=== PATIENT | female | born 1980 | race African-American/Black ===

== ENCOUNTER 2017-09-21 20:37 | Emergency (ER) | payer SELFPAY ==
[2017-09-21 20:58] VITALS: BP 139/76; PULSE 85; RESP 18; TEMP 98.2; O2SAT 99
[2017-09-21] MEDS ORDERED: SODIUM CHLORIDE 0.9% FLUSH 10 ML FLUSH IVF PRN (21:45)
--- NOTE | 2017-09-21 21:53 | PD ---
HPI Chief Complaint: Cold / Flu Symptoms Time Seen by Provider: 21:39 Travel History International Travel<30 days: No Contact w/Intl Traveler<30days: No Traveled to known affect area: No History of Present Illness HPI Patient is a 37-year-old female presenting to emerge department for evaluation of cold and flulike symptoms. Patient states she has been having a dry cough, subjective fevers and chills, generalized body aches for the last 2-3 days. Patient reports that she is HIV positive and has not been on any antivirals in several years. She recently moved here from [place] and thought it could be allergies. She denies any chest pain, abdominal pain, nausea, vomiting, headache. She did report that she felt dizzy earlier today. She also reports a medical history significant for asthma, sickle cell anemia. Symptom onset was gradual, symptoms are moderate in nature. There are no alleviating factors. Patient has not taken any pvtf-veo-[id number] medications. PFSH Past Medical History Anemia: Yes Heart Rhythm Problems: Yes (MURMUR) Medical other: Yes (HIV) Immunizations Current: Yes Sickle Cell Disease: Yes ?: Not Past Surgical History Section: Yes Social History Alcohol Use: No Tobacco Use: No Substance Use: Yes (Marijuana) Allergies-Medications (Allergen,Severity, Reaction): Coded Allergies: ketorolac (Verified Allergy, Severe, 09/21/17) tramadol (Verified Allergy, Severe, 09/21/17) Reported Meds & Prescriptions Reported Meds & Active Scripts Active Amoxicillin 875 Mg Tab 875 Mg PO BID Review of Systems Except as stated in HPI: all other systems reviewed are Neg General / Constitutional: Positive: Fever, Chills HENT: Positive: Sore Throat Respiratory: Positive: Cough Musculoskeletal: Positive: Myalgias Physical Exam Narrative GENERAL: Well-developed, well-nourished, alert -Wallisian female. Presenting in no acute distress. SKIN: Warm and dry. HEAD: Atraumatic. Normocephalic. EYES: Pupils equal and round. No scleral icterus. No injection or drainage. ENT: No nasal bleeding or discharge. Mucous membranes pink and moist. No tonsillar hypertrophy, no erythema or exudates noted. Uvula is midline, airway is patent. NECK: Trachea midline. No JVD., CARDIOVASCULAR: Regular rate and rhythm. RESPIRATORY: No accessory muscle use. Clear to auscultation. Breath sounds equal bilaterally. GASTROINTESTINAL: Abdomen soft, non-tender, nondistended. Hepatic and splenic margins not palpable. MUSCULOSKELETAL: Extremities without clubbing, cyanosis, or edema. No obvious deformities. NEUROLOGICAL: Awake and alert. No obvious cranial nerve deficits. Motor grossly within normal limits. Five out of 5 muscle strength in the arms and legs. Normal speech. PSYCHIATRIC: Appropriate mood and affect; insight and judgment normal. Data Data Last Documented VS Vital Signs Date Time Temp Pulse Resp B/P (MAP) Pulse Ox O2 Delivery O2 Flow Rate FiO2 09/21/17 20:58 98.2 85 18 139/76 (97) 99 Orders Orders Complete Blood Count With Diff (09/21/17 21:45) Comprehensive Metabolic Panel (09/21/17 21:45) Group A Rapid Strep Screen (09/21/17 21:45) Influenzae A/B Antigen (09/21/17 21:45) Chest, Pa & Lat (09/21/17 21:45) Iv Access Insert/Monitor (09/21/17 21:45) Oximetry (09/21/17 21:45) Sodium Chloride 0.9% Flush (Ns Flush) (09/21/17 21:45) Retic Count (09/21/17 21:45) Acetaminophen (Tylenol) (09/21/17 22:45) Strep Culture (Group A) (09/21/17 21:55) Ed Discharge Order (09/21/17 23:10) Labs Laboratory Tests Test 09/21/17 21:55 White Blood Count 6.0 TH/MM3 Red Blood Count 4.64 MIL/MM3 Hemoglobin 8.8 GM/DL Hematocrit 29.8 % Mean Corpuscular Volume 64.4 FL Mean Corpuscular Hemoglobin 18.9 PG Mean Corpuscular Hemoglobin Concent 29.4 % Red Cell Distribution Width 19.2 % Platelet Count 160 TH/MM3 Mean Platelet Volume 10.1 FL Neutrophils (%) (Auto) 54.6 % Lymphocytes (%) (Auto) 36.3 % Monocytes (%) (Auto) 6.5 % Eosinophils (%) (Auto) 1.4 % Basophils (%) (Auto) 1.2 % Neutrophils # (Auto) 3.3 TH/MM3 Lymphocytes # (Auto) 2.2 TH/MM3 Monocytes # (Auto) 0.4 TH/MM3 Eosinophils # (Auto) 0.1 TH/MM3 Basophils # (Auto) 0.1 TH/MM3 CBC Comment AUTO DIFF Reticulocyte Count 1.8 % Absolute Reticulocyte Count 82.9 MIL/L Blood Urea Nitrogen 11 MG/DL Creatinine 0.81 MG/DL Random Glucose 78 MG/DL Total Protein 8.6 GM/DL Albumin 4.0 GM/DL Calcium Level 9.4 MG/DL Alkaline Phosphatase 93 U/L Aspartate Amino Transf (AST/SGOT) 37 U/L Alanine Aminotransferase (ALT/SGPT) 20 U/L Total Bilirubin 0.3 MG/DL Sodium Level 143 MEQ/L Potassium Level 3.9 MEQ/L Chloride Level 110 MEQ/L Carbon Dioxide Level 27.6 MEQ/L Anion Gap 5 MEQ/L Estimat Glomerular Filtration Rate 97 ML/MIN MDM Medical Decision Making Medical Screen Exam Complete: Yes Emergency Medical Condition: Yes Interpretation(s) Last Impressions Chest X-Ray 09/21/17 8078 Signed Impressions: Service Date/Time: Thursday, September 21, 2017 22:16 - CONCLUSION: No acute disease. Major Diggs MD Laboratory Tests Test 09/21/17 21:55 White Blood Count 6.0 TH/MM3 Red Blood Count 4.64 MIL/MM3 Hemoglobin 8.8 GM/DL Hematocrit 29.8 % Mean Corpuscular Volume 64.4 FL Mean Corpuscular Hemoglobin 18.9 PG Mean Corpuscular Hemoglobin Concent 29.4 % Red Cell Distribution Width 19.2 % Platelet Count 160 TH/MM3 Mean Platelet Volume 10.1 FL Neutrophils (%) (Auto) 54.6 % Lymphocytes (%) (Auto) 36.3 % Monocytes (%) (Auto) 6.5 % Eosinophils (%) (Auto) 1.4 % Basophils (%) (Auto) 1.2 % Neutrophils # (Auto) 3.3 TH/MM3 Lymphocytes # (Auto) 2.2 TH/MM3 Monocytes # (Auto) 0.4 TH/MM3 Eosinophils # (Auto) 0.1 TH/MM3 Basophils # (Auto) 0.1 TH/MM3 CBC Comment AUTO DIFF Reticulocyte Count 1.8 % Absolute Reticulocyte Count 82.9 MIL/L Blood Urea Nitrogen 11 MG/DL Creatinine 0.81 MG/DL Random Glucose 78 MG/DL Total Protein 8.6 GM/DL Albumin 4.0 GM/DL Calcium Level 9.4 MG/DL Alkaline Phosphatase 93 U/L Aspartate Amino Transf (AST/SGOT) 37 U/L Alanine Aminotransferase (ALT/SGPT) 20 U/L Total Bilirubin 0.3 MG/DL Sodium Level 143 MEQ/L Potassium Level 3.9 MEQ/L Chloride Level 110 MEQ/L Carbon Dioxide Level 27.6 MEQ/L Anion Gap 5 MEQ/L Estimat Glomerular Filtration Rate 97 ML/MIN Vital Signs Date Time Temp Pulse Resp B/P (MAP) Pulse Ox O2 Delivery O2 Flow Rate FiO2 09/21/17 20:58 98.2 85 18 139/76 (97) 99 Differential Diagnosis Influenza versus strep versus viral syndrome versus allergies versus other Narrative Course Patient is a 37-year-old female presenting for evaluation of body aches and cough. Patient is HIV positive, currently on no medications for several years. She is afebrile and her vital signs are stable. Due to patient's medical history, labs and imaging were ordered. CBC with a mild anemia with a hemoglobin of 8.8/29.8 Chemistry is unremarkable Reticulocyte count is unremarkable Patient is negative for strep or influenza Chest x-ray shows no acute disease Patient is otherwise well-appearing. She is encouraged to follow-up at the [facility] and with infectious disease. She was given acetaminophen for her body aches. She was encouraged to trial conservative symptom management at this time. She is encouraged return to emergency department for any new or worsening symptoms. Patient relayed to the RN that she came in to get checked out because her sister was also here. It appears that she presented more for convenience at this time. Diagnosis Primary Impression: Viral syndrome Additional Impression: Anemia Qualified Codes: D64.9 - Anemia, unspecified Referrals: [facility] Infectious Disease Specialist [facility] Dept. Patient Instructions: Anemia (ED), General Instructions, Viral Syndrome (ED) Additional Instructions: Take [id number]-[id number] acetaminophen or ibuprofen as needed and as directed for body aches Return to emergency department immediately for any new or worsening symptoms Trial [id number] Zyrtec or Claritin or similar medication and use as directed, medication works best with consistent use Follow-up at the [facility] Follow-up at the [facility] or with infectious disease specialist Med/Other Pt SpecificInfo: Prescription(s) given, No Change to Meds Scripts Amoxicillin (Amoxicillin) 875 Mg Tab 875 MG PO BID for Infection, #20 TAB 0 Refills Prov: Catie Rangel 09/21/17 Disposition: 01 DISCHARGE HOME Condition: Stable Catie Rangel September 21, 2017 21:53
[2017-09-21 22:16] LABS: AUTOMATED NEUTROPHIL # 3.3 TH/MM3 (1.8-7.7); BASOPHIL # 0.1 TH/MM3 (0-0.2); BASOPHIL % 1.2 % (0.0-2.0); EOSINOPHIL # 0.1 TH/MM3 (0-0.4); EOSINOPHIL % 1.4 % (0.0-4.0); HEMATOCRIT 29.8 % (35.0-46.0); HEMOGLOBIN 8.8 GM/DL (11.6-15.3); LYMPH % 36.3 % (9.0-44.0); LYMPHOCYTE # 2.2 TH/MM3 (1.0-4.8); MEAN CELL VOLUME 64.4 FL (80.0-100.0); MEAN CORPUSCULAR HEMOGLOBIN 18.9 PG (27.0-34.0); MEAN PLATELET VOLUME 10.1 FL (7.0-11.0); MONO % 6.5 % (0.0-8.0); MONOCYTE # 0.4 TH/MM3 (0-0.9); NEUT % 54.6 % (16.0-70.0); PLATELET COUNT 160 TH/MM3 (150-450); RED BLOOD COUNT 4.64 MIL/MM3 (4.00-5.30); RED CELL DISTRIBUTION WIDTH 19.2 % (11.6-17.2); RETIC # 82.9 MIL/L (20.0-150.0); RETIC % 1.8 % (0.4-3.0)
[2017-09-21 22:20] LABS: MEAN CORPUSCULAR HGB CONC 29.4 % (32.0-36.0)
--- NOTE | 2017-09-21 22:30 | RADRPT ---
EXAM DATE/TIME: 09/21/2017 22:16 [facility] COMPARISON: No previous studies available for comparison. INDICATIONS : Patient complains of cough, sore throat, diziness, and shortness of breath. MEDICAL HISTORY : None. SURGICAL HISTORY : None. ENCOUNTER: Initial ACUITY: 2 days PAIN SCORE: 0/10 LOCATION: chest FINDINGS: PA and lateral views of the chest demonstrate the lungs to be symmetrically aerated without evidence of mass, infiltrate or effusion. The cardiomediastinal contours are unremarkable. Osseous structure s are intact. CONCLUSION: No acute disease. Major Diggs MD on September 21, 2017 at 22:27 Board Certified Radiologist. This report was verified electronically.
[2017-09-21 22:39] LABS: ALKALINE PHOSPHATASE 93 U/L (45-117); TOTAL BILIRUBIN ADULT 0.3 MG/DL (0.2-1.0); TOTAL PROTEIN 8.6 GM/DL (6.4-8.2)
[2017-09-21] MEDS ORDERED: ACETAMINOPHEN 325 MG TAB PO ONE (22:45)
[2017-09-21 22:47] LABS: ALT (GPT) 20 U/L (10-53); AST (GOT) 37 U/L (15-37); BICARBONATE 27.6 MEQ/L (21.0-32.0); BLOOD UREA NITROGEN 11 MG/DL (7-18); CALCIUM 9.4 MG/DL (8.5-10.1); CHLORIDE 110 MEQ/L (98-107); CREATININE 0.81 MG/DL (0.50-1.00); GLOMERULAR FILTRATION RATE 97 ML/MIN (>89); GLUCOSE,RANDOM 78 MG/DL (74-106); SODIUM (NA) 143 MEQ/L (136-145)
[2017-09-21] MEDS ORDERED: AMOX875T PO (23:10)
== END 2017-09-21 23:30 | disposition home or self-care (01) ==
LOC: NEPD 20:37
DX: B34.9 Viral infection, unspecified (principal); D64.9 Anemia, unspecified; R05 Cough; M79.1 Myalgia; R50.9 Fever, unspecified; R07.0 Pain in throat; R42 Dizziness and giddiness; D57.1 Sickle-cell disease without crisis; Z21 Asymptomatic human immunodeficiency virus [HIV] infection status; Z86.79 Personal history of other diseases of the circulatory system
CPT/HCPCS: 71046; 80053; 85025; 85044; 87081; 87804; 87880; 99284

== ENCOUNTER 2017-09-26 11:10 | Emergency (ER) | payer MEDICAID, OTHER ==
[~2017-09-26] VITALS: Ht 182.9 cm; Wt 90.0 kg
[~2017-09-26 11:10] MED LIST: AMOX875T PO
[2017-09-26 11:38] VITALS: BP 182/94; PULSE 73; RESP 20; TEMP 98.2; O2SAT 100
[2017-09-26] MEDS ORDERED: ACETAMINOPHEN/HYDROcodone 325 MG/5 MG TAB PO ONE ×2 (12:45→17:00)
[2017-09-26 13:00] LABS: BILIRUBIN, URINE NEG (NEG); GLUCOSE,URINE NEG (NEG); KETONE, URINE NEG (NEG); MUCUS URINE MOD /lpf (OCC); NITRITE,URINE NEG (NEG); PH, URINE 6.5 (5.0-8.5); SQUAMOUS EPITHELIAL CELL URINE 5 /hpf (0-5); URINE COLOR YELLOW (YELLW/STRAW)
[2017-09-26 13:01] LABS: BLOOD, URINE TRACE (NEG); URINE LEUKOCYTE ESTERASE TRACE (NEG)
[2017-09-26 13:21] LABS: AUTOMATED NEUTROPHIL # 2.8 TH/MM3 (1.8-7.7); BASOPHIL % 0.7 % (0.0-2.0); EOSINOPHIL # 0.2 TH/MM3 (0-0.4); EOSINOPHIL % 3.8 % (0.0-4.0); HEMATOCRIT 28.7 % (35.0-46.0); HEMOGLOBIN 8.6 GM/DL (11.6-15.3); LYMPHOCYTE # 1.3 TH/MM3 (1.0-4.8); MEAN CORPUSCULAR HEMOGLOBIN 19.5 PG (27.0-34.0); MEAN PLATELET VOLUME 10.5 FL (7.0-11.0); MONO % 9.7 % (0.0-8.0); MONOCYTE # 0.5 TH/MM3 (0-0.9); NEUT % 58.8 % (16.0-70.0); PLATELET COUNT 156 TH/MM3 (150-450); RED BLOOD COUNT 4.42 MIL/MM3 (4.00-5.30); RED CELL DISTRIBUTION WIDTH 19.4 % (11.6-17.2); WHITE BLOOD COUNT 4.7 TH/MM3 (4.0-11.0)
--- NOTE | 2017-09-26 13:34 | PD ---
HPI Chief Complaint: Skin Problem Time Seen by Provider: 11:43 Travel History International Travel<30 days: No Contact w/Intl Traveler<30days: No Traveled to known affect area: No History of Present Illness HPI 37-year-old female came to the emergency room with history of vaginal discharge this morning and pelvic pain. Patient is HIV positive and is not on any medical treatments for it. Her last CD4 count and viral load was checked in 2004. Patient says that she is currently visiting her sister from [place] and does not have any primary care doctors in the area. No history of fever or chills. No history of dysuria. Patient says she is currently not sexually active and the last time she had sex was in 2004. Vital signs are stable. Patient has a knot in the left end of the scar which she has had it for 8 years but lately it has been tender and painful. She is also experiencing a lot of pelvic pain. Pain does not radiate and is worse upon movement. PFSH Past Medical History Narrative Medical List of her past medical, surgical, social and family history is reviewed from the nursing note. Anemia: Yes Heart Rhythm Problems: Yes (MURMUR) Immunizations Current: Yes Sickle Cell Disease: Yes ?: Not Past Surgical History Section: Yes Social History Alcohol Use: No Tobacco Use: No Substance Use: Yes (Marijuana) Allergies-Medications (Allergen,Severity, Reaction): Coded Allergies: ketorolac (Verified Allergy, Severe, 09/21/17) tramadol (Verified Allergy, Severe, 09/21/17) Comments List of her allergies reviewed from the nursing note. Reported Meds & Prescriptions Reported Meds & Active Scripts Active Amoxicillin 875 Mg Tab 875 Mg PO BID Narrative Medication List of her home medications reviewed from the nursing note Review of Systems Except as stated in HPI: all other systems reviewed are Neg Genitourinary: Positive: Pelvic Pain, Discharge Physical Exam Narrative GENERAL: Awake, alert, moderate distress SKIN: Focused skin assessment warm/dry. HEAD: Atraumatic. Normocephalic. EYES: Pupils equal and round. No scleral icterus. No injection or drainage. Ophthalmoplegia ENT: No nasal bleeding or discharge. Mucous membranes pink and moist. NECK: Trachea midline. No JVD. CARDIOVASCULAR: Regular rate and rhythm. No murmur appreciated. RESPIRATORY: No accessory muscle use. Clear to auscultation. Breath sounds equal bilaterally. GASTROINTESTINAL: Abdomen soft, non-tender, nondistended. Hepatic and splenic margins not palpable. BRUSH MATERIAL PREPARER: External exam shows a tender 3 cm diameter firm mass at the left end of the scar. This is non-mobile. Speculum exam reveals some yellowish to greenish colored discharge with some frothiness in the vaginal vault. There is significant CMT and adnexal tenderness. MUSCULOSKELETAL: No obvious deformities. No clubbing. No cyanosis. No edema. NEUROLOGICAL: Awake and alert. No obvious cranial nerve deficits. Motor grossly within normal limits. Normal speech. PSYCHIATRIC: Appropriate mood and affect; insight and judgment normal. Data Data Last Documented VS Vital Signs Date Time Temp Pulse Resp B/P (MAP) Pulse Ox O2 Delivery O2 Flow Rate FiO2 09/26/17 11:38 98.2 73 20 182/94 (123) 100 Orders Orders Urinalysis - C+S If Indicated (09/26/17 12:22) Ed Urine Pregnancytest Poc (09/26/17 12:22) Complete Blood Count With Diff (09/26/17 12:43) Gc And Chlamydia Pcr (09/26/17 12:43) Wet Prep Profile (09/26/17 12:43) Acetamin-Hydrocod 325-5 Mg (Mead 5-325 (09/26/17 12:45) Chest, Pa & Lat (09/26/17 ) Ct Abd/Pel W Iv Contrast(Rout) (09/26/17 ) Comprehensive Metabolic Panel (09/26/17 12:43) Vascular Access Team Consult/P PRN (09/26/17 13:36) Vascular Poc Ultrasound (09/26/17 ) Metronidazole (Flagyl) (09/26/17 14:00) Azithromycin Powd Pack (Zithromax Powd P (09/26/17 14:00) Ceftriaxone Inj (Rocephin Inj) (09/26/17 14:00) Lidocaine 1% Inj (50 Ml) (Xylocaine 1% I (09/26/17 14:00) Lidocaine 1% Inj (Xylocaine 1% Inj) (09/26/17 14:46) Iohexol 350 Inj (Omnipaque 350 Inj) (09/26/17 15:25) Diet Heart Healthy (09/26/17 Dinner) Ed Discharge Order (09/26/17 16:56) Ketorolac Inj (Toradol Inj) (09/26/17 17:00) Acetamin-Hydrocod 325-5 Mg (Mead 5-325 (09/26/17 17:00) Labs Laboratory Tests Test 09/26/17 12:20 09/26/17 12:26 09/26/17 13:00 Chlamydia trachomatis DNA (PCR) NOT DETECTED Neisseria gonorrhoeae DNA (PCR) NOT DETECTED Urine Color YELLOW Urine Turbidity CLEAR Urine pH 6.5 Urine Specific [place] 1.025 Urine Protein NEG mg/dL Urine Glucose (UA) NEG mg/dL Urine Ketones NEG mg/dL Urine Occult Blood TRACE Urine Nitrite NEG Urine Bilirubin NEG Urine Urobilinogen LESS THAN 2.0 MG/DL Urine Leukocyte Esterase TRACE Urine RBC 2 /hpf Urine WBC 2 /hpf Urine Squamous Epithelial Cells 5 /hpf Urine Mucus MOD /lpf Microscopic Urinalysis Comment CULT NOT INDICATED White Blood Count 4.7 TH/MM3 Red Blood Count 4.42 MIL/MM3 Hemoglobin 8.6 GM/DL Hematocrit 28.7 % Mean Corpuscular Volume 65.0 FL Mean Corpuscular Hemoglobin 19.5 PG Mean Corpuscular Hemoglobin Concent 30.0 % Red Cell Distribution Width 19.4 % Platelet Count 156 TH/MM3 Mean Platelet Volume 10.5 FL Neutrophils (%) (Auto) 58.8 % Lymphocytes (%) (Auto) 27.0 % Monocytes (%) (Auto) 9.7 % Eosinophils (%) (Auto) 3.8 % Basophils (%) (Auto) 0.7 % Neutrophils # (Auto) 2.8 TH/MM3 Lymphocytes # (Auto) 1.3 TH/MM3 Monocytes # (Auto) 0.5 TH/MM3 Eosinophils # (Auto) 0.2 TH/MM3 Basophils # (Auto) 0.0 TH/MM3 CBC Comment AUTO DIFF Differential Comment AUTO DIFF CONFIRMED Platelet Estimate LOW Platelet Morphology Comment ENLARGED Ovalocytes 1+ Acanthocytes OCC Keratocytes OCC Clue Cells (Wet Prep) NONE SEEN Vaginal Trichomonas (Wet Prep) PRESENT Vaginal Yeast (Wet Prep) NONE SEEN Blood Urea Nitrogen 8 MG/DL Creatinine 0.73 MG/DL Random Glucose 77 MG/DL Total Protein 7.9 GM/DL Albumin 3.7 GM/DL Calcium Level 9.0 MG/DL Alkaline Phosphatase 81 U/L Aspartate Amino Transf (AST/SGOT) 26 U/L Alanine Aminotransferase (ALT/SGPT) 28 U/L Total Bilirubin 0.2 MG/DL Sodium Level 141 MEQ/L Potassium Level 3.8 MEQ/L Chloride Level 106 MEQ/L Carbon Dioxide Level 26.9 MEQ/L Anion Gap 8 MEQ/L Estimat Glomerular Filtration Rate 109 ML/MIN MDM Medical Decision Making Medical Screen Exam Complete: Yes Emergency Medical Condition: Yes Medical Record Reviewed: Yes Differential Diagnosis PID, tubo-ovarian abscess, abdominal wall abscess Narrative Course 1:57 PM blood test results are back and show some anemia but not requiring blood transfusion. Most of her blood test and UA are within normal limits. Awaiting for the CT scan of the abdomen and pelvis to be done and resulted. Wet prep is positive for trichomonas. The GC and Chlamydia I was told by the nurse was sent in a wrong tube. I have reordered GC and Chlamydia from the urine. I would go ahead and treat the patient for PID. 4:[address] scan report is finally back. Suggestive of a solid mass with a cyst and it on the left side of the abdominal wall that is adjacent to the C- section scar. As per the radiologist as does not appear to be an abscess. I have put a call out for the BRUSH MATERIAL PREPARER oncologist to call back. I will discuss this finding with him and his opinion. 4:25 PM I discussed the case with Dr. Fernando from OB hospitalist. He is coming down to see the patient and decide if any further treatment or intervention is required at this point. I have let the patient know about this as well. My concern is that patient is untreated HIV positive with PID and the mass and hence I requested for BRUSH MATERIAL PREPARER. I was told that without a definite diagnosis of BRUSH MATERIAL PREPARER cancer BRUSH MATERIAL PREPARER oncologist will not consult on this case. The case will be signed over to the oncoming ER physician at this point pending BRUSH MATERIAL PREPARER consultation. 4:57 PM as per the OB hospitalist this is an endometriosis adhered to her C- section scar. This could be treated with pain control for the time being and a BRUSH MATERIAL PREPARER consultation. Based on this I am comfortable discharging her home. Procedures EKG Prior to Arrival: No Physician Communication Physician Communication Dr. Fernando Diagnosis Primary Impression: Pelvic pain Additional Impressions: PID (acute pelvic inflammatory disease) HIV disease Pelvic mass in female Left lower quadrant abdominal wall mass Endometriosis in scar of skin Referrals: Ann Donald MD 1 week Additional Instructions: Follow-up with the BRUSH MATERIAL PREPARER specialist is name and number been provided to you on the discharge instruction. He can call and make an appointment to the office. Take the medication as per the prescription direction. You should go to department of health and get proper treatment for your HIV and test done. Med/Other Pt SpecificInfo: Prescription(s) given Scripts Metronidazole (Flagyl) 250 Mg Tab 250 MG PO TID for Infection for 7 Days, TAB 0 Refills Prov: Ari Ferreira MD 09/26/17 Ibuprofen (Ibuprofen) 600 Mg Tab 600 MG PO Q6H Y for Pain/Inflammation, #40 TAB 0 Refills Prov: Ari Ferreira MD 09/26/17 Disposition: 01 DISCHARGE HOME Condition: Stable Ari Ferreira MD September 26, 2017 13:34
[2017-09-26 13:38] LABS: ALBUMIN 3.7 GM/DL (3.4-5.0); ALT (GPT) 28 U/L (10-53); AST (GOT) 26 U/L (15-37); BICARBONATE 26.9 MEQ/L (21.0-32.0); BLOOD UREA NITROGEN 8 MG/DL (7-18); CHLORIDE 106 MEQ/L (98-107); CREATININE 0.73 MG/DL (0.50-1.00); GLOMERULAR FILTRATION RATE 109 ML/MIN (>89); GLUCOSE,RANDOM 77 MG/DL (74-106); SODIUM (NA) 141 MEQ/L (136-145)
[2017-09-26 13:41] LABS: ALKALINE PHOSPHATASE 81 U/L (45-117); TOTAL BILIRUBIN ADULT 0.2 MG/DL (0.2-1.0); TOTAL PROTEIN 7.9 GM/DL (6.4-8.2)
[2017-09-26] MEDS ORDERED: LIDOCAINE HCL 1% 50 ML VIAL IM ONE (14:00)
[2017-09-26] MEDS ORDERED: AZITHROMYCIN PWD FOR SUSP 1 GM PACKET PO ONE (14:00)
[2017-09-26] MEDS ORDERED: metroNIDAZOLE 500 MG TAB PO ONE (14:00)
[2017-09-26] MEDS ORDERED: cefTRIAXone 250 MG VIAL IM ONE (14:00)
[2017-09-26 14:02] LABS: KERATOCYTES OCC (NORMAL); OVALOCYTES 1+ (NORMAL)
[2017-09-26 14:03] LABS: ACANTHOCYTES OCC (NORMAL)
--- NOTE | 2017-09-26 14:12 | RADRPT ---
EXAM DATE/TIME: 09/26/2017 13:04 [facility] COMPARISON: CHEST PA & LAT, September 21, 2017, 22:16. INDICATIONS : Patient states shortness of breath. MEDICAL HISTORY : None. SURGICAL HISTORY : None. ENCOUNTER: Initial ACUITY: 1 day PAIN SCORE: 0/10 LOCATION: Bilateral chest FINDINGS: PA and lateral views of the chest demonstrate the lungs to be symmetrically aerated without evidence of mass, infiltrate or effusion. The cardiomediastinal contours are unremarkable. Osseous structure s are intact. CONCLUSION: No acute disease. Major Gaona MD on September 26, 2017 at 14:10 Board Certified Radiologist. This report was verified electronically.
[2017-09-26] MEDS ORDERED: LIDOCAINE HCL 1% 20 ML VIAL ONE (14:46)
[2017-09-26] MEDS ORDERED: IOHEXOL 350 MG/ML 10 ML VIAL (for RAD DIAG) IVCONTRAST ONE (15:25)
--- NOTE | 2017-09-26 15:58 | RADRPT ---
EXAM DATE/TIME: 09/26/2017 15:22 [facility] COMPARISON: No previous studies available for comparison. INDICATIONS : Abdominal pain. Pateint states she has an abcess on her lower left abdomen. IV CONTRAST: 94 cc Omnipaque 350 (iohexol) IV ORAL CONTRAST: No oral contrast ingested. RADIATION DOSE: 11.82 CTDIvol (mGy) MEDICAL HISTORY : Sickle cell disease. SURGICAL HISTORY : section. ENCOUNTER: Initial ACUITY: 1 day PAIN SCALE: 8/10 LOCATION: Left abdomen. TECHNIQUE: Volumetric scanning of the abdomen and pelvis was performed. Using automated exposure control and ad justment of the mA and/or kV according to patient size, radiation dose was kept as low as reasonably achievable to obtain optimal diagnostic quality images. DICOM format image data is available electro nically for review and comparison. FINDINGS: LOWER LUNGS: The visualized lower lungs are clear. LIVER: Homogeneous density without lesion. There is no dilation of the biliary tree. No calcified gallston es. SPLEEN: Normal size without lesion. PANCREAS: Within normal limits. KIDNEYS: Normal in size and shape. There is no mass, stone or hydronephrosis. ADRENAL GLANDS: Within normal limits. VASCULAR: There is no aortic aneurysm. BOWEL/MESENTERY: The stomach, small bowel, and colon demonstrate no acute abnormality. There is no free intraperitone al air or fluid. ABDOMINAL WALL: 3.4 cm soft tissue density mass process adjacent to the anterior margin of the rectus musculature in the left lower quadrant just above and medial to the inguinal region. 18 mm contiguous fluid density situated slightly more inferiorly and superficially. The overall appearance is not that of a simple a bscess, rather mass with cyst. Correlation with previous workup of this lesion would be suggested. RETROPERITONEUM: There is no lymphadenopathy. BLADDER: No wall thickening or mass. REPRODUCTIVE: Small I'm or free pelvic fluid. INGUINAL: There is no lymphadenopathy or hernia. MUSCULOSKELETAL: Within normal limits for patient age. CONCLUSION: Solid and cystic mass process involving the left lower quadrant abdominal wall as described. Major Gaona MD on September 26, 2017 at 15:50 Board Certified Radiologist. This report was verified electronically.
[2017-09-26] MEDS ORDERED: KETOROLAC TROMETHAMINE 30 MG/ML (IVP) VIAL IV PUSH ONE (17:00)
[2017-09-26] MEDS ORDERED: IBUP-232 PO (17:01)
[2017-09-26] MEDS ORDERED: METR250 PO (17:01)
--- NOTE | 2017-09-26 17:09 | PD.CONS ---
History & Physical H&P HYDROELECTRIC PRODUCTION MANAGER consult She is a 37-year-old white female para 3 previous 3 and tubal ligation who is HIV positive and not on retroviral medications. She is from the [facility] but is planning to stay in this area for some time. She presents complaining of severe pain in the left lower quadrant. On CT scan there is a 3 cm mass in the subcutaneous tissue of the abdomen just under C- section scar that is solid with a 1.7 cm cyst in the mass. This mass has been present for quite some time patient states that when she has her period It swells and it becomes much more tender. Her last period was at first the month and she is midcycle at this time states her periods are very heavy and painful but are once a month, patient's been examined by the ER staff and wet prep was positive for trichomoniasis negative for other pathogens and GC and chlamydia are pending at this time. On their exam cervical motion tenderness was noted. Exam-patient's main pain is from this mass and her scar on the left side it is very obvious it is very firm very tender very palpable and just under the section scar Impression-is endometriosis metastasized to the scar and now become symptomatic once a month when she has her period with pain and swelling and now is midcycle but is flared up with pain possibly because of the trichomonas or other infections going on but this is what her problem is Plan--recommend treating her Trichomonas with metronidazole in the usual fashion , she is received Rocephin already in the ER today and possibly will be on oral outpatient antibiotics, pain medication needed for symptom relief, bed rest as much as possible over the next day or 2, patient was encouraged to follow-up with a HYDROELECTRIC PRODUCTION MANAGER doctor possibly Dr. Donald who is back up HYDROELECTRIC PRODUCTION MANAGER call today to see about excision of this mass which is the only real treatment it will continue to be an on and off problem until it is surgically excised out of the scar Axel Fernando II, MD September 26, 2017 17:09
== END 2017-09-26 17:35 | disposition home or self-care (01) ==
LOC: NEPD 11:10
DX: B20 Human immunodeficiency virus [HIV] disease (principal); N73.0 Acute parametritis and pelvic cellulitis; N80.6 Endometriosis in cutaneous scar; R19.04 Left lower quadrant abdominal swelling, mass and lump
CPT/HCPCS: 71046; 74177; 80053; 81001; 84703; 85025; 87210; 87491; 87591; 96372; 99285; J0696; Q9967